=== PATIENT | male | born 1955 | race Two or more races ===

== ENCOUNTER → 2016-10-19 | Outpatient (CLI) | payer OTHER ==
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
--- NOTE | 2016-10-19 13:53 | NM ---
EXAMINATION TYPE: NM bone scan whole body DATE OF EXAM: 10/19/2016 1:31 PM COMPARISON: X-ray 02/10/2015 HISTORY: Cervical and low back pain with left wrist pain Delayed whole-body scanning was performed following the injection of 25.2 mCi Tc 99m MDP. Images acq uired 3 hours post injection. FINDINGS: Anterior and posterior full body images, bilateral oblique views of the cervical and thoracic and lum bar spine and dorsal and palmar views of the hands and wrists. Photopenic defect involving the L5-S1 level appears post surgical with areas of increased uptake at t he S1 level. This is seen at the surgical site on x-ray. Faint increased uptake in the lower cervical and throughout the thoracic spinal likely related to mil d degenerative change. Uptake with in the cervical spine likely corresponds the previous surgical sit e. Abnormal uptake involving the first carpal metacarpal joint bilaterally likely post arthritic. Abnormal uptake involving the shoulders likely post arthritic. IMPRESSION: Findings involving the wrists likely post arthritic. Findings involving the vertebral, likely related to degenerative disc disease with evidence of previo us surgery at L5-S1.
== END ==
LOC: RADMRIMAIN 06:53
PROVIDERS: ATTEND Physician Assistant
DX: M47.22 Other spondylosis with radiculopathy, cervical region (principal); M54.2 Cervicalgia; Z98.1 Arthrodesis status; M62.838 Other muscle spasm
CPT/HCPCS: 72156; 78306; A9503; A9577

== ENCOUNTER → 2017-10-03 | Outpatient (CLI) | payer OTHER ==
--- NOTE | 2017-10-03 08:31 | MR ---
EXAMINATION TYPE: MR cervical spine wo/w con DATE OF EXAM: 10/03/2017 COMPARISON: 10/19/2016 HISTORY: Spondylosis with radiculopathy, cervical TECHNIQUE: Multiplanar, multisequence images of the cervical spine were acquired utilizing 7 mL intravenous Gada vist gadolinium contrast. Diffusion weighted imaging was performed. FINDINGS: There is anterior cervical fusion at C5-C6. Craniovertebral junction appears normal. C2-C3: No evidence for degenerative disc disease. No disc bulge/herniation or protrusion. No Canal stenosis. Foramina are patent bilaterally. C3-C4: Mild central bulging is present with mild anterior thecal sac compression. No cord contact or cord deformity is evident. No spinal canal stenosis or neural foraminal stenosis is present C4-C5: There is a moderately large central disc herniation present with moderate anterior thecal sac compression. This is in close approximation with the spinal cord. Some spinal cord flattening may be present. No stenosis is present. Visually and by measurement this disc herniation is slightly larger than comparison. C5-C6: Small central protrusion or residual disc has minimal anterior thecal sac compression. This co uld be related to some minimal endplate spurring. No cord contact is evident. No spinal canal stenosi s is evident. Neural foramen are patent. C6-C7: There is disc space narrowing. Some mild symmetrical disc bulge is present with mild anterior thecal sac compression. No spinal canal stenosis present. No cord contact is evident. Uncovertebral j oint hypertrophy is present with moderate bilateral foraminal narrowing. C7-T1: No evidence for degenerative disc disease. No disc bulge/herniation or protrusion. No Canal stenosis. Foramina are patent bilaterally. Cervical segments are intact. There is normal alignment. Cervical spinal cord is of normal signal. Craniovertebral junction relationships are within normal limits. Suspicious enhancement is not evident. IMPRESSION: 1. Moderately large central disc herniation with moderate anterior thecal sac compression C4-5. This is in close approximation with the spinal cord and mild cord flattening is not excluded. This appears to be slightly larger than the comparison of 10/19/2016. 2. Postsurgical changes from anterior cervical fusion C5-6.
== END | disposition home or self-care (01) ==
LOC: RADMRIMAIN 07:21
PROVIDERS: ATTEND Orthopaedic Surgery
DX: M50.221 Other cervical disc displacement at C4-C5 level (principal); Z98.890 Other specified postprocedural states
CPT/HCPCS: 72156; A9581

== ENCOUNTER → 2020-04-16 | Day surgery (SDC) | payer MEDICARE ==
[2020-04-14 08:42] VITALS: BMI 26.1
[~2020-04-16] MED LIST: LIDOCAINE 1% INJ 10MG/ML (20 ML MDV) SQ ONE; MIDAZOLAM 2 MG/2 ML VIAL IV ONE; SODIUM CHLORIDE 0.9% 1,000 ML in EMPTY BAG 1 BAG IV ONE; fentaNYL (PF) 50 MCG/ML 2 ML AMP IV ONE
[2020-04-16 07:54] LABS: Glucose,Whole Blood 146 mg/dL (75-99)
[2020-04-16 08:02] LABS: Basophils # (A) 0.1 k/uL (0-0.2); Basophils % (A) 1 %; Eosinophils # (A) 0.2 k/uL (0-0.7); Eosinophils % (A) 2 %; HGB 18.8 gm/dL (13.0-17.5); Lymphocytes # (A) 1.5 k/uL (1.0-4.8); Lymphocytes % (A) 16 %; MCH 33.7 pg (25.0-35.0); MCHC 32.9 g/dL (31.0-37.0); MCV 102.1 fL (80.0-100.0); Macrocytosis Slight; Mean Platelet Volume 6.8; Monocytes # (A) 0.3 k/uL (0-1.0); Monocytes % (A) 3 %; Neutrophils # (A) 7.4 k/uL (1.3-7.7); Neutrophils % (A) 77 %; Platelet Count 266 k/uL (150-450); RDW 13.5 % (11.5-15.5); WBC 9.6 k/uL (3.8-10.6)
[2020-04-16 08:09] LABS: HCT 57.2 % (39.0-53.0)
[2020-04-16 08:14] VITALS: RESP 18; TEMP 98.3
[2020-04-16 08:16] LABS: Calcium 9.4 mg/dL (8.4-10.2); Potassium 4.8 mmol/L (3.5-5.1)
--- NOTE | 2020-04-16 09:25 | P.OP ---
Date of Procedure: 04/16/20 Description of Procedure: Preoperative diagnosis: [Daniel 3 peripheral arterial disease, unable to obtain appropriate KAYLIE on the right lower extremity, KAYLIE on the left of 0.9] Postoperative diagnosis: Same Procedure: [#1 ultrasound guided left common femoral artery access #2 aortogram with runoffs #3 moderate conscious sedation 25 minutes] Surgeon: Maddie Morgan D.O. EBL: [Less than 10 mL] IV fluids: [See records] Urine output: [Not measured] Drains: [None] Complications: [ none immediately apparent] Condition: [Stable to recovery] Operative indication and findings: [The patient is a 64-year-old male with chronic back pain and multiple surgeries who presented to the office for evaluation of lower extremity pain with ambulation. He can walk 50-80 feet prior to having issues in his legs, his right seems worse than his left. He denies any rest pain or wounds. He had ultrasound imaging at an outside facility revealing an KAYLIE on the left of 0.9, on the right there unable to obtain. He had nonpalpable pulses on the right lower extremity but did have weakly biphasic flow. No TBIs were performed. It was decided he would benefit from an angiogram for direct visualization. He presents today for this] Procedure in detail: [The patient was taken to the special suite and placed in supine position. The bilateral lower extremities and groins are prepped and draped in usual sterile fashion. A preprocedure timeout was performed, all parties are in agreement. The ultrasound was utilized, the left common femoral artery was identified. The skin overlying was anesthetized with 1% lidocaine plain. The common femoral artery was cannulated. A 5-New Zealander sheath was placed. Guidewire and catheter were placed and a pigtail catheter was placed in the aorta. There were patent renal arteries bilaterally and lumbar arteries. The right, the common iliac artery moderate stenosis. The internal and external hemorrhoids the patent without evidence of significant disease. The common femoral and profunda are patent without significant disease. At the proximal portion of the abductor canal there is a high-grade stenosis. Popliteal artery is patent without evidence of significant disease. There is three-vessel runoff at its takeoff, but the anterior tibial artery and posterior tibial are only patent at the ankle. On the left, common iliac, internal and external is are patent without evidence of significant disease. The common femoral, deep femoral and Superficial femoral arteries] is patent without evidence of significant disease. The popliteal artery is patent without evidence of significant disease. There is three-vessel takeoff with a patent anterior tibial and posterior tibial at the ankle. Once adequate imaging was obtained, catheters and wires removed. The sheath was removed and pressure was held until hemostasis is adequate. A dressing was placed. Going forward the patient will need treatment in the form of right iliac angioplasty and stent as well as superficial femoral artery atherectomy Plan - Discharge Summary Discharge Rx Participant: Yes New Discharge Prescriptions: No Action Cholecalciferol [Vitamin D3 (25 Mcg = 1000 Iu)] 5,000 unit PO DAILY Multivitamins, Thera [Multivitamin (formulary)] 1 tab PO DAILY metFORMIN HCL [Glucophage] 500 mg PO QID HYDROcodone/APAP 10-325MG [[place] 10-325] 1 tab PO BID Atorvastatin [Lipitor] 40 mg PO DAILY ALPRAZolam [Xanax] 1 mg PO BID Gabapentin 300 mg PO TID Cyclobenzaprine [Flexeril] 10 mg PO TID PRN PRN Reason: Muscle Spasm Valsartan 160 mg PO DAILY [place]-3 Fatty Acids/Fish Oil [Fish Oil 1,000 mg Softgel] 1 each PO DAILY Insulin Degludec [Tresiba] 26 units SQ QAM Fenofibrate 54 mg PO Q48H Empagliflozin [Jardiance] 25 mg PO DAILY Aspirin [Adult Low Dose Aspirin EC] 81 mg PO DAILY metHOTREXate sodium [Methotrexate] 8 tab PO BULLOCK Discharge Medication List ALPRAZolam [Xanax] 1 mg PO BID 04/14/20 [History] Aspirin [Adult Low Dose Aspirin EC] 81 mg PO DAILY 04/14/20 [History] Atorvastatin [Lipitor] 40 mg PO DAILY 04/14/20 [History] Cholecalciferol [Vitamin D3 (25 Mcg = 1000 Iu)] 5,000 unit PO DAILY 04/14/20 [History] Cyclobenzaprine [Flexeril] 10 mg PO TID PRN 04/14/20 [History] Empagliflozin [Jardiance] 25 mg PO DAILY 04/14/20 [History] Fenofibrate 54 mg PO Q48H 04/14/20 [History] Gabapentin 300 mg PO TID 04/14/20 [History] HYDROcodone/APAP 10-325MG [[place] 10-325] 1 tab PO BID 04/14/20 [History] Insulin Degludec [Tresiba] 26 units SQ QAM 04/14/20 [History] Multivitamins, Thera [Multivitamin (formulary)] 1 tab PO DAILY 04/14/20 [History] [place]-3 Fatty Acids/Fish Oil [Fish Oil 1,000 mg Softgel] 1 each PO DAILY 04/14/20 [History] Valsartan 160 mg PO DAILY 04/14/20 [History] metFORMIN HCL [Glucophage] 500 mg PO QID 04/14/20 [History] metHOTREXate sodium [Methotrexate] 8 tab PO BULLOCK 04/14/20 [History]
--- NOTE | 2020-04-16 10:40 | IR ---
EXAMINATION TYPE: IR angio abdominal w runoff DATE OF EXAM: 04/16/2020 CLINICAL HISTORY: Peripheral vascular disease. Leg pain. TECHNIQUE: Fluoroscopy. COMPARISON: None. FINDINGS: Fluoroscopic guidance was provided during abdominal angiogram with runoff procedure perfor med by Dr. Morgan. A total of 36 seconds of fluoroscopic time was utilized during the procedure and s everal spot images are acquired. Images acquired to access via left groin with subsequent angiogram a nd runoff. Postsurgical change lumbosacral junction noted. Please refer to procedure note for further details as I was not present nor performed procedure. IMPRESSION: As Above.
[2020-04-16 12:28] LABS: Glucose,Whole Blood 180 mg/dL (75-99)
[2020-04-16 16:57] VITALS: BP 126/74; PULSE 82
== END ==
LOC: CATHCVL 07:22
PROVIDERS: ATTEND Surgery
DX: I70.291 Other atherosclerosis of native arteries of extremities, right leg (principal); E11.51 Type 2 diabetes mellitus with diabetic peripheral angiopathy without gangrene; G89.29 Other chronic pain; M54.9 Dorsalgia, unspecified; K64.8 Other hemorrhoids; K64.4 Residual hemorrhoidal skin tags; M19.90 Unspecified osteoarthritis, unspecified site; F17.200 Nicotine dependence, unspecified, uncomplicated; J44.9 Chronic obstructive pulmonary disease, unspecified; I10 Essential (primary) hypertension; Z90.49 Acquired absence of other specified parts of digestive tract; Z98.890 Other specified postprocedural states; Z83.79 Family history of other diseases of the digestive system; Z82.49 Family history of ischemic heart disease and other diseases of the circulatory system; Z79.84 Long term (current) use of oral hypoglycemic drugs; Z79.891 Long term (current) use of opiate analgesic; Z79.899 Other long term (current) drug therapy; Z88.2 Allergy status to sulfonamides
CPT/HCPCS: 36200; 75625; 75716; 76937; 80048; 85025; C1769 ×2; J2250; J2001; J3010

== ENCOUNTER 2020-06-10 06:26 | Day surgery (SDC) | payer MEDICARE ==
[~2020-06-10 06:26] MED LIST changes: +ALPRAZolam 0.25 MG TAB PO PRN; -LIDOCAINE 1% INJ 10MG/ML (20 ML MDV) SQ ONE; -MIDAZOLAM 2 MG/2 ML VIAL IV ONE; -fentaNYL (PF) 50 MCG/ML 2 ML AMP IV ONE
[2020-06-10] MEDS ORDERED: ASPIRIN 325 MG TAB PO ONE (07:00)
[2020-06-10 07:09] LABS: Glucose,Whole Blood 139 mg/dL (75-99)
[2020-06-10 07:10] VITALS: RESP 16; TEMP 98.2
[2020-06-10 07:27] LABS: Basophils # (A) 0.1 k/uL (0-0.2); Basophils % (A) 1 %; Eosinophils # (A) 0.2 k/uL (0-0.7); Eosinophils % (A) 2 %; Lymphocytes # (A) 1.7 k/uL (1.0-4.8); Lymphocytes % (A) 17 %; MCH 32.6 pg (25.0-35.0); MCV 98.8 fL (80.0-100.0); Macrocytosis Slight; Mean Platelet Volume 7.3; Monocytes # (A) 0.7 k/uL (0-1.0); Monocytes % (A) 7 %; Neutrophils # (A) 7.5 k/uL (1.3-7.7); Neutrophils % (A) 73 %; Platelet Count 229 k/uL (150-450); RBC 5.82 m/uL (4.30-5.90); WBC 10.2 k/uL (3.8-10.6)
[2020-06-10 07:30] LABS: HCT 57.5 % (39.0-53.0)
[2020-06-10 07:33] LABS: African American GFR (CKD) >90 (>60 ml/min/1.73 sqM); Anion Gap 8 mmol/L; Blood Urea Nitrogen 29 mg/dL (9-20); Calcium 9.3 mg/dL (8.4-10.2); Carbon Dioxide 22 mmol/L (22-30); Chloride 107 mmol/L (98-107); Glucose 147 mg/dL (74-99); Non-African American GFR(CKD) 90 (>60 ml/min/1.73 sqM); Sodium 137 mmol/L (137-145)
[2020-06-10 07:51] LABS: Potassium 4.9 mmol/L (3.5-5.1)
[2020-06-10] MEDS ORDERED: fentaNYL (PF) 50 MCG/ML 2 ML AMP IVP ONE (08:17)
[2020-06-10] MEDS ORDERED: MIDAZOLAM 2 MG/2 ML VIAL IVP ONE (08:17)
[2020-06-10] MEDS ORDERED: LIDOCAINE 1% INJ 10MG/ML (20 ML MDV) SQ ONE (08:17)
[2020-06-10] MEDS ORDERED: HEPARIN SODIUM 1,000 UN/ML (10ML VL) IV ONE (08:20)
[2020-06-10] MEDS ORDERED: IOPAMIDOL-250 100ML BTL INTRAARTER ONE (08:34)
--- NOTE | 2020-06-10 09:50 | P.OP ---
Date of Procedure: 06/10/20 Description of Procedure: Preoperative diagnosis: Daniel 3 peripheral arterial disease, right iliac occlusive disease, right superficial femoral artery occlusive disease Postoperative diagnosis: Same Procedure: #1 ultrasound guided left common femoral artery access #2 selective right lower extremity angiogram third order to popliteal artery #3 atherectomy right superficial femoral artery with Turbo Hawk M #4 percutaneous transluminal balloon angioplasty of drug-coated balloon 5 x 80 in the right superficial femoral artery #5 right iliac balloon expandable stent 8 x 57 VisMiladiso Surgeon: Maddie Morgan D.O. EBL: <10 IV fluids: See records Urine output: Not measured Drains: None Complications: None immediately apparent Condition: Stable to recovery, palpable right pedal pulses Operative indication and findings: Patient is a 64-year-old male who came into the office initially presenting with [place] 3 severe claudication not able to walk more than 50-80 yards area he underwent arterial ultrasounds revealing unidentifiable KAYLIE on the right and 0.9 on the left. He had an angiogram revealing hemodynamically significant right iliac artery stenosis as well as near occlusion of the right superficial femoral artery. He presents today for intervention. Procedure in detail: [The patient was taken to the special suite placed in supine position. The bilateral groins were prepped and draped in usual sterile fashion. A preprocedure timeout was performed, all parties were in agreement. The ultrasound utilized and the left common femoral artery was identified. The skin overlying was anesthetized 1% lidocaine plain. A multipurpose needle was used and the artery was cannulated. Guidewire was placed and using Seldinger technique a 6-Palestinian sheath was placed. Guidewires and catheters were used to cannulate the right iliac system and down into the femoral arteries. A glide advantage was placed and the sheath was exchanged for a 6-Palestinian Raabi. A right lower extremity angiogram was taken from the femoral artery revealing the area of significant stenosis, near occlusion, greater than 90% at the distal superficial femoral artery. Wires and catheters were used to cross. An angiogram was performed from the popliteal artery via the crossing catheter revealing 3 vessel takeoff below the knee. The crossing catheter was used to place a 6 spider distal embolic protection device. The Hawk M was placed and multiple passes were made over the area of significant stenosis. Angiogram was performed revealing significant improvement therefore a 5 x 80 drug-coated balloon. Repeat imaging revealed no evidence of significant stenosis with maintain three-vessel runoff. The filter was then recaptured and brought out through the sheath. The glide advantage was then replaced and the sheath was retracted until the left iliac area and angiogram was performed revealing stenosis of the iliac. An 8 x 57 balloon expandable noncovered stent was utilized and placed with good expansion and relief of the significant stenosis. The sheath was exchanged for a short 6-Palestinian sheath catheters wires removed. The patient was transferred to recovery with plans to pull the sheath in the recovery area. At the conclusion of procedure he has palpable pedal pulses. Plan - Discharge Summary Discharge Rx Participant: No New Discharge Prescriptions: New Clopidogrel [Plavix] 75 mg PO DAILY #30 tablet No Action Cholecalciferol [Vitamin D3 (25 Mcg = 1000 Iu)] 5,000 unit PO DAILY Multivitamins, Thera [Multivitamin (formulary)] 1 tab PO DAILY metFORMIN HCL [Glucophage] 500 mg PO QID HYDROcodone/APAP 10-325MG [[place] 10-325] 1 tab PO BID Atorvastatin [Lipitor] 40 mg PO DAILY ALPRAZolam [Xanax] 1 mg PO BID RX: Gabapentin 300 mg PO BID Cyclobenzaprine [Flexeril] 10 mg PO BID RX: Valsartan 160 mg PO QAM [place]-3 Fatty Acids/Fish Oil [Fish Oil 1,000 mg Softgel] 1 each PO DAILY Insulin Degludec [Tresiba] 26 units SQ QAM RX: Fenofibrate 54 mg PO Q48H Empagliflozin [Jardiance] 25 mg PO QAM Aspirin [Adult Low Dose Aspirin EC] 81 mg PO DAILY metHOTREXate sodium [Methotrexate] 8 tab PO BULLOCK Discharge Medication List ALPRAZolam [Xanax] 1 mg PO BID 04/14/20 [History] Aspirin [Adult Low Dose Aspirin EC] 81 mg PO DAILY 04/14/20 [History] Atorvastatin [Lipitor] 40 mg PO DAILY 04/14/20 [History] Cholecalciferol [Vitamin D3 (25 Mcg = 1000 Iu)] 5,000 unit PO DAILY 04/14/20 [History] Cyclobenzaprine [Flexeril] 10 mg PO BID 04/14/20 [History] Empagliflozin [Jardiance] 25 mg PO QAM 04/14/20 [History] HYDROcodone/APAP 10-325MG [[place] 10-325] 1 tab PO BID 04/14/20 [History] Insulin Degludec [Tresiba] 26 units SQ QAM 04/14/20 [History] Multivitamins, Thera [Multivitamin (formulary)] 1 tab PO DAILY 04/14/20 [History] [place]-3 Fatty Acids/Fish Oil [Fish Oil 1,000 mg Softgel] 1 each PO DAILY 04/14/20 [History] RX: Fenofibrate 54 mg PO Q48H 04/14/20 [History] RX: Gabapentin 300 mg PO BID 04/14/20 [History] RX: Valsartan 160 mg PO QAM 04/14/20 [History] metFORMIN HCL [Glucophage] 500 mg PO QID 04/14/20 [History] metHOTREXate sodium [Methotrexate] 8 tab PO BULLOCK 04/14/20 [History] Clopidogrel [Plavix] 75 mg PO DAILY #30 tablet 06/10/20 [Rx] Follow up Appointment(s)/Referral(s): Maddie Morgan DO [STAFF PHYSICIAN] - 2 Weeks Activity/Diet/Wound Care/Special Instructions: No strenuous activity or heavy lifting for the next 48 hours. May resume regular activities following this. May shower starting tomorrow. Discharge Disposition: HOME SELF-CARE
[2020-06-10] MEDS ORDERED: SODIUM CHLORIDE 0.9% 1,000 ML IV SCH (10:15)
--- NOTE | 2020-06-10 13:16 | IR ---
EXAMINATION TYPE: IR police captain iliac DATE OF EXAM: 06/10/2020 COMPARISON: NONE HISTORY: Fluoroscopy time. Fluoroscopy was provided to the referring clinician.
[2020-06-10] MEDS ORDERED: HYDROcodone/APAP 10-325MG 1 EACH TAB ONE (15:09)
[2020-06-10] MEDS ORDERED: HYDROcodone/APAP 10-325MG 1 EACH TAB PO ONE (15:14)
[2020-06-10 15:17] VITALS: PULSE 82
[2020-06-10 16:14] VITALS: BP 145/72
--- NOTE | 2020-06-13 07:59 | CDI ---
Patient: Jose Daniel Green. Acct #[id number] Report #[id number] Outpatient documentation Clarification Form Date: 06/13/20 CDS/Painter Bottom Name: Tena Dempsey Phone: If any questions call Valentine Gil On Car Supervisor at Patient Jose Daniel Green Admit Date: 06/10/20 Discharge Date: 06/10/20 ATTENTION: The [facility] Coding staff appreciate your assistance in clarifying documentation. Please respond to the clarification below the line at the bottom and electronically sign. The [facility] Coding staff will review the response and follow-up if needed. Please note: Queries are made a part of the legal Health Record. If yo have any questions, please contact the Coding Manger. Dear. Dr. Morgan, Please provide clarification as to the cause of the PAD. PAD/PVD is considered unspecified. Greatest specificity is required for medical necessity support. Is underlying cause of the Occlusive PAD one of the following? Arteriosclerotic disease of the arteries MTDD
--- NOTE | 2020-06-18 10:54 | CDI ---
Patient: Jose Daniel Green. Acct #[id number] Report #[id number] Outpatient documentation Clarification Form Date: 06/13/20 CDS/Workday Manager Name: Tena Dempsey Phone: If any questions call Valentine Gil Fibre Composite Technician at Patient Jose Daniel Green Admit Date: 06/10/20 Discharge Date: 06/10/20 ATTENTION: The [facility] Coding staff appreciate your assistance in clarifying documentation. Please respond to the clarification below the line at the bottom and electronically sign. The [facility] Coding staff will review the response and follow-up if needed. Please note: Queries are made a part of the legal Health Record. If yo have any questions, please contact the Coding Manger. Dear. Dr. Morgan, Please provide clarification as to the cause of the PAD. PAD/PVD is considered unspecified. Greatest specificity is required for medical necessity support. Is underlying cause of the Occlusive PAD one of the following? Arteriosclerotic disease of the arteries MTDD
== END 2020-06-10 17:03 | disposition home or self-care (01) ==
LOC: CATHCVL 06:26
PROVIDERS: ATTEND Surgery
DX: I70.211 Atherosclerosis of native arteries of extremities with intermittent claudication, right leg (principal); Z82.49 Family history of ischemic heart disease and other diseases of the circulatory system; Z72.0 Tobacco use; Z79.82 Long term (current) use of aspirin; Z79.891 Long term (current) use of opiate analgesic; Z79.899 Other long term (current) drug therapy; Z79.4 Long term (current) use of insulin; Z88.5 Allergy status to narcotic agent; Z83.79 Family history of other diseases of the digestive system; Z88.2 Allergy status to sulfonamides
CPT/HCPCS: 37221; 37225; 80048; 85025; C1894 ×2; C1769 ×4; C1887; C1714; C1884; C2623; C1876; J2250; J2001; J3010; J1644; Q9966

== ENCOUNTER → 2022-05-18 | Outpatient (CLI) | payer MEDICARE | END | disposition home or self-care (01) | LOC: LABWHC1 09:06 | PROVIDERS: ATTEND Family Medicine | DX: R60.9 Edema, unspecified (principal) | CPT/HCPCS: 36415; 85379 ==